=== PATIENT | female | born 1970 | race Two or more races ===

== ENCOUNTER 2025-07-06 08:50 | Outpatient (CLI) | payer OTHER ==
[~2025-07-06 08:50] MED LIST: COLACE50 MG PO
[2025-07-06 09:51] LABS: BASO % 0.1 % (0.1-1.2); EOS # 0.00 (0.04-0.54); EOS % 0.0 % (0.7-7.0); LYMPH # 1.43 (1.18-3.74); LYMPH % 18.3 % (19.3-53.1); MEAN PLATELET VOLUME 9.20 fl (9.4-12.4); MONO # 0.18 (0.24-0.82); MONO % 2.3 % (4.7-12.5); NEUT # 6.17 (1.56-6.13); NEUT % 78.9 % (34.0-71.1); RED CELL DISTRIBUTION WIDTH 13.0 % (11.6-14.4)
[2025-07-06 10:37] LABS: ALT/SGPT 31.0 U/L (12-78); AST/SGOT 11.0 U/L (15-37); BILIRUBIN TOTAL 0.52 mg/dL (0.3-1.2); BUN CREA RATIO 33.0 (7.0-25.0); CHOL HDL RATIO 3.2 (0-5.0); CREATININE SERUM 0.72 mg/dL (0.55-1.02); GFR 84.73; GLOBULINA 3.4 G/DL (2.4-3.5); GLUCOSE FASTING 139.0 mg/dL (65-100); HDL 78.0 mg/dl (40-60); LDL 156.0 mg/dl (0-130); OSMOLALITY SERUM 289.0 MOSM/KG (275-295); TSH 1.04 uIU/mL (0.358-3.74); VLDL 17.0 (0-39)
[2025-07-06 11:59] LABS: URINE BILIRRUBIN NEGATIVE (NEGATIVE); URINE BLOOD TRACE; URINE GLUCOSE NEGATIVE (NEGATIVE); URINE KETONE NEGATIVE (NEGATIVE); URINE LEUKOCYTE NEGATIVE; URINE NITRATE NEGATIVE; URINE PROTEIN NEGATIVE (NEGATIVE); URINE UROBILINOGEN 0.2 E.U./dl
[2025-07-06 12:19] LABS: URINE APPEARANCE CLEAR; URINE COLOR YELLOW
[2025-07-06 12:20] LABS: URINE BACTERIA FEW; URINE CRYSTALS NEGATIVE /HPF; URINE EPITHELIAL CELLS 0-4 /HPF; URINE MUCUS NEGATIVE; URINE WBC 0-2 /hpf
[2025-07-09 09:08] LABS: LEUTEINIZING HORMONE 67.2 mIU/mL (.)
== END 2025-07-06 09:00 | disposition home or self-care (01) ==
LOC: LAB 08:50
PROVIDERS: ATTEND Obstetrics & Gynecology Maternal & Fetal Medicine
DX: E03.8 Other specified hypothyroidism (principal); D63.8 Anemia in other chronic diseases classified elsewhere; N30.90 Cystitis, unspecified without hematuria; E78.00 Pure hypercholesterolemia, unspecified; R73.9 Hyperglycemia, unspecified; K92.1 Melena; Z12.11 Encounter for screening for malignant neoplasm of colon; E55.9 Vitamin D deficiency, unspecified; N92.1 Excessive and frequent menstruation with irregular cycle

== ENCOUNTER 2025-07-24 10:47 | Outpatient (CLI) | payer OTHER | END 2025-07-24 10:48 | disposition home or self-care (01) | LOC: NUCLEAR 10:47 | DX: M81.0 Age-related osteoporosis without current pathological fracture (principal) ==